=== PATIENT | female | born 1955 | race Caucasian/White ===

== ENCOUNTER 2017-06-15 03:26 | Emergency (ER) | payer OTHER, MEDICARE ==
[~2017-06-15] VITALS: Ht 162.6 cm; Wt 104.3 kg
[~2017-06-15 03:26] MED LIST: ULTRAM50 M1 PO; ZOFRAN4 M2 SL
--- NOTE | 2017-06-15 04:00 | ED MVC/FALL/TRAUMA COMPLAINT ---
History of Present Illness General Chief Complaint: Fall Stated Complaint: FELL OUT OF WHEELCHAIR Source: patient, family, old records Exam Limitations: clinical condition Vital Signs & Intake/Output Vital Signs & Intake/Output Vital Signs Date Time Temp Pulse Resp B/P B/P Pulse O2 O2 Flow FiO2 Mean Ox Delivery Rate 06/15 0456 Room Air 06/15 0345 98.2 75 16 152/67 95 Room Air Allergies Coded Allergies: NO KNOWN ALLERGIES (03/22/11) Reconcile Medications Ondansetron HCl (Zofran) 4 MG TABLET 1 TAB SL Q4-6 PRN NAUSEA Tramadol HCl (Ultram) 50 MG TABLET 1 TAB PO BIDP PRN PAIN Triage Note: PER EMS PT HAS A HX OF L SIDED CVA, BUT CAN TURN AND PIVOT FROM W/C TONIGHT WHILE GETTING UP TO BR FELL ONTO L LEG, CO PAIN. PT IS BASELINE W/C BOUND. BUT HAS BEEN HAVING LLE WEAKNESS X 2 WEEKS NO HEADSTRIKE NO LOC NO OTHER INJURIES Triage Nurses Notes Reviewed? yes Onset: Abrupt Duration: hour(s): (FEW) Timing: single episode today Severity: mild, moderate Injuries/Fall Location: lower extremity Method of Injury: FALL OUT OF WHEELCHAIR Loss of Consciousness: no loss of consciousness Modifying Factors: Worsens With: movement. HPI: This is a 61-year-old female with past medical history of ruptured AVM status post right hemicraniectomy in 2010 who presents to the ER with her from home by ambulance for chief complaint of fall while trying to get from her wheelchair to the bathroom. Patient's right knee has been bothering her in the leg gave way and she fell down and hit her left leg. No head trauma. She wears a helmet at all times because they were unable to replace part of the cranium. The states she did not hit her head. Patient complains of low back pain pelvis pain, left hip pain and right knee pain. He states that she has been weak and falling. The used to get home PT but no longer get home PT. They've been trying to increase home services. Past History Travel History Traveled to [place] past 21 day No Medical History Any Pertinent Medical History? see below for history Neurological: ANEURYSM LEFT SIDED HEMIPARALYSIS AVM EENT: NONE Cardiovascular: NONE Respiratory: NONE Gastrointestinal: NONE Hepatic: NONE Renal: NONE Musculoskeletal: NONE Psychiatric: NONE Endocrine: NONE Blood Disorders: NONE Cancer(s): NONE Surgical History Surgical History: non-contributory Psychosocial History Who do you live with Spouse What is your primary language Ukrainian Tobacco Use: Never used Family History Hx Contributory? No Review of Systems Review of Systems Constitutional: Denies: chills, fever. Eyes: Reports: no symptoms. Ears, Nose, Throat, Mouth: Reports: no symptoms. Respiratory: Reports: no symptoms. Cardiovascular: Reports: no symptoms. Gastrointestinal/Abdominal: Reports: no symptoms. Genitourinary: Reports: no symptoms. Musculoskeletal: Reports: joint pain, muscle pain. Skin: Reports: no symptoms. Neurological/Psychological: Denies: confusion, headache. All Other Systems: Reviewed and Negative Physical Exam Physical Exam General Appearance: alert, awake Head: WEARING HELMET, H/O CRANIECTOMY Eyes: Bilateral: PERRL. Ears, Nose, Throat, Mouth: hearing grossly normal, moist mucous membrane Neck: normal inspection, supple, full range of motion Respiratory: normal breath sounds, chest non-tender, no respiratory distress Cardiovascular: regular rate/rhythm Peripheral Pulses: 2+ radial (R), 2+ radial (L) Gastrointestinal: normal bowel sounds, soft, non-tender Extremities: normal range of motion, PAIN WITH RANGE OF MOTION, NO DEFORMITY, UNIFORMLY WEAK BILATERALLY Neurologic/Psych: awake, alert, SLURRED SPEECH, BASELINE MENTAL STATUS PER Skin: intact, normal color, warm/dry Core Measures ACS in differential dx? No CVA/TIA Diagnosis No Sepsis Present: No Sepsis Focused Exam Completed? No Progress Differential Diagnosis: fracture, sprain, contusion Plan of Care: Orders Procedure Date/time Status XRY-AP PELVIS 06/15 399 Active XRY-LUMBOSACRAL SPINE AP & LAT 06/15 399 Active XRY-KNEE COMPLETE RIGHT 06/15 399 Active XRY-HIP 2-3 VIEWS, LEFT 06/15 399 Active Diagnostic Imaging: Viewed by Me: Radiology Read. Discussed w/RAD: Radiology Read. Radiology Impression: PATIENT: SONIA WATSON PRESENT AGE: 61 PATIENT ACCOUNT NO: [id number] : 55 LOCATION: [facility] ORDERING PHYSICIAN: Oralia Griffiths MD SERVICE DATE: 06/15/17 EXAM TYPE: RAD - XRY-AP PELVIS; XRY-HIP 2-3 VIEWS, LEFT EXAMINATION: XR PELVIS XR HIP, LEFT CLINICAL INFORMATION: Fall out of wheelchair COMPARISON: None TECHNIQUE: AP view of the pelvis. 2 views of the left hip FINDINGS: There is no fracture or dislocation. The femoral heads are well-seated within their acetabula. The joint spaces are maintained with small osteophytes noted. The pelvic rim is intact. The sacroiliac joints and pubic symphysis are intact. The bowel gas pattern is unremarkable. IMPRESSION: No acute fracture or malalignment. Mild degenerative changes of the hips. DICTATED BY: Karlos Ponce MD DATE/TIME DICTATED:06/15 ACCOUNT SUPPORT SPECIALIST:TONIA DATE/TIME TRANSCRIBED:06/15/17505 CONFIDENTIAL, DO NOT COPY WITHOUT APPROPRIATE AUTHORIZATION. <Electronically signed in Other Vendor System> SIGNED BY: Karlos Ponce MD 06/15/17510, PATIENT: SONIA WATSON PRESENT AGE: 61 PATIENT ACCOUNT NO: [id number] : 55 LOCATION: [facility] ORDERING PHYSICIAN: Oralia Griffiths MD SERVICE DATE: 06/15/17 EXAM TYPE: RAD - XRY-KNEE COMPLETE RIGHT EXAMINATION: XR KNEE, RIGHT CLINICAL INFORMATION: Fall out of wheelchair COMPARISON: None TECHNIQUE: Four views of the right knee. FINDINGS: No fracture or subluxation. Mild medial compartment joint space narrowing. No joint effusion. The soft tissues are unremarkable. IMPRESSION: No fracture or malalignment. DICTATED BY: Karlos Ponce MD DATE/TIME DICTATED:06/15/17506 ACCOUNT SUPPORT SPECIALIST:TONIA DATE/TIME TRANSCRIBED:06/15/17506 CONFIDENTIAL, DO NOT COPY WITHOUT APPROPRIATE AUTHORIZATION. <Electronically signed in Other Vendor System> SIGNED BY: Karlos Ponce MD 06/15/17510, PATIENT: SONIA WATSON PRESENT AGE: 61 PATIENT ACCOUNT NO: [id number] : 55 LOCATION: [facility] ORDERING PHYSICIAN: Oralia Griffiths MD SERVICE DATE: 06/15/17 EXAM TYPE: RAD - XRY-AP PELVIS; XRY-HIP 2-3 VIEWS, LEFT EXAMINATION: XR PELVIS XR HIP, LEFT CLINICAL INFORMATION : Fall out of wheelchair COMPARISON: None TECHNIQUE: AP view of the pelvis. 2 views of the left hip FINDINGS: There is no fracture or dislocation. The femoral heads are well-seated within their acetabula. The joint spaces are maintained with small osteophytes noted. The pelvic rim is intact. The sacroiliac joints and pubic symphysis are intact. The bowel gas pattern is unremarkable. IMPRESSION: No acute fracture or malalignment. Mild degenerative changes of the hips. DICTATED BY: Karlos Ponce MD DATE/TIME DICTATED:06/15/17505 ACCOUNT SUPPORT SPECIALIST:TONIA DATE/TIME TRANSCRIBED:06/15/17505 CONFIDENTIAL, DO NOT COPY WITHOUT APPROPRIATE AUTHORIZATION. <Electronically signed in Other Vendor System> SIGNED BY: Karlos Ponce MD 06/15/17 0511 Departure Departure Time of Disposition: 0537 Disposition: HOME OR SELF CARE Condition: Stable Clinical Impression Primary Impression: Accident due to mechanical fall without injury Referrals: Kristan MELISSA,Marcin Montilla (PCP/Family) Additional Instructions: TAKE THE TYLENOL NEEDED FOR PAIN OUR CASE MANAGEMENT DEPARTMENT WILL FOLLOW UP WITH YOU REGARDING SETTING UP HOME PHYSICAL THERAPY SERVICES AT HOME RETURN IF WORSE Departure Forms: Customer Survey General Discharge Information
--- NOTE | 2017-06-15 05:09 | RADIOLOGY REPORT ---
EXAMINATION: XR LUMBOSACRAL SPINE CLINICAL INFORMATION: Fall out of wheelchair COMPARISON: None TECHNIQUE: 2 views of the lumbosacral spine FINDINGS: The bones are osteopenic. No acute fracture or subluxation. Vertebral body heights are maintained. Mild disc space narrowing of L3-L4. The sacroiliac joints are intact. The sacrum is intact. The bowel gas pattern is unremarkable. IMPRESSION: No fracture or malalignment.
--- NOTE | 2017-06-15 05:11 | RADIOLOGY REPORT ---
EXAMINATION: XR KNEE, RIGHT CLINICAL INFORMATION: Fall out of wheelchair COMPARISON: None TECHNIQUE: Four views of the right knee. FINDINGS: No fracture or subluxation. Mild medial compartment joint space narrowing. No joint effusion. The soft tissues are unremarkable. IMPRESSION: No fracture or malalignment.
--- NOTE | 2017-06-15 05:11 | RADIOLOGY REPORT ---
EXAMINATION: XR PELVIS XR HIP, LEFT CLINICAL INFORMATION: Fall out of wheelchair COMPARISON: None TECHNIQUE: AP view of the pelvis. 2 views of the left hip FINDINGS: There is no fracture or dislocation. The femoral heads are well-seated within their acetabula. The joint spaces are maintained with small osteophytes noted. The pelvic rim is intact. The sacroiliac joints and pubic symphysis are intact. The bowel gas pattern is unremarkable. IMPRESSION: No acute fracture or malalignment. Mild degenerative changes of the hips.
[2017-06-15 05:50] VITALS: BP 146/71
== END 2017-06-15 07:09 ==
LOC: ERH 03:26
DX: M54.5 Low back pain (principal)
CPT/HCPCS: 72100; 72170; 73502-LT; 73562-RT